=== PATIENT | male | born 1965 | race Two or more races ===

== ENCOUNTER 2019-09-11 14:17 | Emergency (ER) | payer SELFPAY ==
[~2019-09-11] VITALS: Ht 162.6 cm; Wt 75.3 kg
[2019-09-11 14:25] VITALS: BP 155/91
[2019-09-11] MEDS ORDERED: LIDOCAINE MPF 1% 5 ML ONE (14:39)
[2019-09-11] MEDS ORDERED: BACITRACIN OINT 500 UNITS/GM PKT TP ONE (14:39)
--- NOTE | 2019-09-11 15:10 | NUR ---
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 BLEEDING CONTROLLED. NAD. 2+ RADIAL PULSE BL. HX DENIES
--- NOTE | 2019-09-11 15:12 | NUR ---
SUDHEER COREA AT BEDSIDE
--- NOTE | 2019-09-11 15:18 | NUR ---
PT LEFT WRIST LAC DRESSED WITH NON-ADHERENT GAUZE PAD AND WRAPPED WITH 3" GAUZE ROLL, BASITRACIN APPLIED ON LAC BEFORE DRESSING, CMS WNL BEFORE AND AFTER, RN NOTIFIED.
[2019-09-11 15:35] VITALS: BP 150/80
--- NOTE | 2019-09-11 15:36 | NUR ---
Patient discharged with v/s stable. Written and verbal after care instructions given and explained. Patient alert, oriented and verbalized understanding of instructions. Ambulatory with steady gait. All questions addressed prior to discharge. ID band removed. Patient advised to follow up with PMD. Rx of BACITRACIN,IBUPROFEN given. Patient educated on indication of medication including possible reaction and side effects. Opportunity to ask questions provided and answered.
== END 2019-09-11 15:36 | disposition home or self-care (01) ==
LOC: MED 14:17
DX: S61.512A Laceration without foreign body of left wrist, initial encounter (principal); W26.8XXA Contact with other sharp object(s), not elsewhere classified, initial encounter; Y93.89 Activity, other specified; Y92.89 Other specified places as the place of occurrence of the external cause; Y99.8 Other external cause status
CPT/HCPCS: 12001; 90471; 90715; 99283; J2001

== ENCOUNTER 2019-09-13 14:07 | Emergency (ER) | payer SELFPAY ==
[~2019-09-13] VITALS: Ht 167.6 cm; Wt 75.3 kg
--- NOTE | 2019-09-13 14:10 | NUR ---
PT AMBULATED TO BED 4. TRIAGED PERFORMED AT BEDSIDE.
[2019-09-13 14:13] VITALS: BP 176/77
--- NOTE | 2019-09-13 14:15 | NUR ---
53 Y/O MALE FROM HOME PRESENTS TO ER FOR WOUND CHECK TO LT WRIST S/P CUTTING WRIST WITH MACHETE WHILE CUTTING TREE 2 DAYS AGO. PT HAD SUTURES PLACED AT [facility] AND PRESENTS FOR RECHECK. DENIES FEVER. 4/10 ACHING PAIN, DENIES TAKING MEDICATION FOR PAIN. SKIN WARM AND DRY. VSS.
--- NOTE | 2019-09-13 14:18 | NUR ---
SUDHEER ADHIKARI AT BEDSIDE EXAMINING PT
--- NOTE | 2019-09-13 14:24 | NUR ---
NON-ADHERENT DRESSING PLACED TO PTS LT WRIST.
[2019-09-13 14:27] VITALS: BP 176/77
--- NOTE | 2019-09-13 14:27 | NUR ---
Patient discharged with v/s stable. Written and verbal after care instructions given and explained. Patient verbalized understanding. Ambulatory with steady gait. All questions addressed prior to discharge. Advised to follow up with PMD.
== END 2019-09-13 14:27 | disposition home or self-care (01) ==
LOC: MED 14:07
DX: S61.512D Laceration without foreign body of left wrist, subsequent encounter (principal); R03.0 Elevated blood-pressure reading, without diagnosis of hypertension; X58.XXXD Exposure to other specified factors, subsequent encounter; Z48.00 Encounter for change or removal of nonsurgical wound dressing
CPT/HCPCS: 99281

== ENCOUNTER 2019-09-20 17:28 | Emergency (ER) | payer SELFPAY ==
[~2019-09-20] VITALS: Ht 170.2 cm; Wt 75.3 kg
[2019-09-20 17:32] VITALS: BP 138/82
[2019-09-20] MEDS ORDERED: BACITRACIN OINT 500 UNITS/GM PKT TP ONE ×2 (17:44→17:45)
[2019-09-20 17:55] VITALS: BP 138/82
== END 2019-09-20 17:56 | disposition home or self-care (01) ==
LOC: MED 17:28
DX: S61.512D Laceration without foreign body of left wrist, subsequent encounter (principal); L03.114 Cellulitis of left upper limb; X58.XXXD Exposure to other specified factors, subsequent encounter; Z48.00 Encounter for change or removal of nonsurgical wound dressing
CPT/HCPCS: 99283